=== PATIENT | male | born 1975 | race Caucasian/White ===

== ENCOUNTER → 2022-08-07 16:44 | Outpatient (CLI) | payer OTHER, MEDICAID, SELFPAY ==
[2022-08-07 18:19] LABS: Add Manual Diff / Slide Review NO; Basophils Absolute Auto 100 /uL (0-100); Basophils Percent Auto 0.7 % (0-2); Eosinophils Absolute Auto 100 /uL (0-450); Eosinophils Percent Auto 0.6 % (2-4); Hematocrit 42.6 % (41-53); Hemoglobin 14.2 g/dL (13.5-17.5); Lymphocytes Absolute Auto 3500 /uL (1100-4500); Lymphocytes Percent Auto 31.4 % (25-40); Mean Corpuscular HGB Conc 33.3 % (30-36); Mean Corpuscular Hemoglobin 29.9 PG (26-34); Mean Corpuscular Volume 89.9 fL (80-100); Monocytes Absolute Auto 800 /uL (0-900); Monocytes Percent Auto 6.7 % (3-14); Neutrophils Absolute Auto 6800 /uL (1500-7000); Neutrophils Percent Auto 60.6 % (50-75); Platelet Count 297 X10^3/uL (150-400); Red Blood Cell Count 4.74 X10^6/uL (4.5-5.9); Red Cell Distribution Width 14.4 % (11.6-14.8); White Blood Cell Count 11.3 X10^3/uL (4.5-11.0)
[2022-08-07 18:28] LABS: Alanine Aminotransferase 33 IU/L (<50); Albumin 3.7 g/dL (3.5-5.0); Albumin Globulin Ratio 1.4 (1.0-2.8); Alkaline Phosphatase 77 U/L (38-126); Aspartate Aminotransferase 26 IU/L (17-59); BUN Creatinine Ratio 15.1 (6-22); Bilirubin Total 0.3 mg/dL (0.2-1.3); Blood Urea Nitrogen 11 mg/dL (9-20); Calcium 8.5 mg/dL (8.4-10.2); Carbon Dioxide 27 mmol/L (22-32); Chloride 101 mmol/L (98-107); Cholesterol 178 mg/dL (140-199); Estimated Glomerular Filt Rate > 60 mL/min (>60); Globulin 2.6 g/dL (1.7-4.1); Glucose 109 mg/dL (70-100); HDL Cholesterol 38 mg/dL (40-60); HEMOLYSIS < 15 (0-50); LDL Cholesterol Calculated 114 mg/dL (<100); Potassium 3.8 mmol/L (3.4-5.1); Sodium 137 mmol/L (137-145); Total Protein 6.3 g/dL (6.3-8.2); Triglycerides 132 mg/dL (35-150)
== END ==
PROVIDERS: PCP Family Medicine; Referring Provider Family Medicine; Visit Provider Family Medicine
DX: I10 Essential (primary) hypertension (principal); J45.909 Unspecified asthma, uncomplicated
CPT/HCPCS: 36415; 80053; 80061; 83036; 85025

== ENCOUNTER → 2022-09-10 10:46 | Outpatient (CLI) | payer OTHER, MEDICAID, SELFPAY ==
[2022-09-10 12:49] LABS: Influenza A - CEPHEID Flu A NEGATIVE (NEGATIVE); Influenza B - CEPHEID Flu B NEGATIVE (NEGATIVE); Respiratory Syncytial Virus Negative (Negative)
[2022-09-10 13:18] LABS: COVID-19 CEPHEID 4-PLEX PCR Negative (Negative)
== END ==
PROVIDERS: PCP Family Medicine; Visit Provider Family Medicine
DX: R05.3 Chronic cough (principal); R09.81 Nasal congestion
CPT/HCPCS: 0241U

== ENCOUNTER → 2022-09-10 10:55 | Outpatient (CLI) | payer OTHER, MEDICAID, SELFPAY ==
--- NOTE | 2022-09-10 10:57 | DI.RAD.S_ITS ---
PROCEDURE: XR CHEST 2V INDICATIONS: chronic cough TECHNIQUE: 2 views of the chest were acquired. COMPARISON: None. FINDINGS: Surgical changes and devices: None. Lungs and pleura: Lungs are clear. No pleural effusions or pneumothorax. Mediastinum: Mediastinal contours are normal. Heart size is normal. Bones and chest wall: No suspicious bony abnormalities. Soft tissues appear unremarkable. IMPRESSION: No acute process. Dictated by: Michael Arreola M.D. on 09/10/2022 at 13:20 Transcribed by: SAMIR on 09/10/2022 at 13:21 Approved by: Michael Arreola M.D. on 09/10/2022 at 16:33
== END ==
PROVIDERS: PCP Family Medicine; Referring Provider Family Medicine; Visit Provider Family Medicine
DX: R05.3 Chronic cough (principal); F17.200 Nicotine dependence, unspecified, uncomplicated; R09.81 Nasal congestion
CPT/HCPCS: 0241U; 71046

== ENCOUNTER → 2023-06-03 14:39 | Outpatient (CLI) | payer OTHER, MEDICAID, SELFPAY ==
[2023-06-03 16:13] LABS: Add Manual Diff / Slide Review NO; Basophils Absolute Auto 100 /uL (0-100); Eosinophils Absolute Auto 100 /uL (0-450); Eosinophils Percent Auto 0.7 % (2-4); Hematocrit 42.5 % (41-53); Hemoglobin 14.3 g/dL (13.5-17.5); Lymphocytes Absolute Auto 2900 /uL (1100-4500); Lymphocytes Percent Auto 28.8 % (25-40); Mean Corpuscular HGB Conc 33.6 % (30-36); Mean Corpuscular Hemoglobin 30.2 PG (26-34); Monocytes Absolute Auto 600 /uL (0-900); Monocytes Percent Auto 6.2 % (3-14); Neutrophils Absolute Auto 6400 /uL (1500-7000); Neutrophils Percent Auto 63.3 % (50-75); Platelet Count 335 X10^3/uL (150-400); Red Blood Cell Count 4.72 X10^6/uL (4.5-5.9); Red Cell Distribution Width 14.8 % (11.6-14.8); White Blood Cell Count 10.2 X10^3/uL (4.5-11.0)
[2023-06-03 16:20] LABS: Hemoglobin A1C% w Est Avg Glu 6.1 % (4.0-6.0)
[2023-06-03 16:37] LABS: Alanine Aminotransferase 45 IU/L (<50); Albumin 3.6 g/dL (3.5-5.0); Albumin Globulin Ratio 1.4 (1.0-2.8); Alkaline Phosphatase 81 U/L (38-126); Aspartate Aminotransferase 34 IU/L (17-59); BUN Creatinine Ratio 24.1 (6-22); Bilirubin Total 0.2 mg/dL (0.2-1.3); Blood Urea Nitrogen 14 mg/dL (9-20); Carbon Dioxide 31 mmol/L (22-32); Chloride 101 mmol/L (98-107); Cholesterol 167 mg/dL (140-199); Estimated Glomerular Filt Rate > 60 mL/min (>60); Globulin 2.6 g/dL (1.7-4.1); Glucose 110 mg/dL (70-100); HDL Cholesterol 41 mg/dL (40-60); HEMOLYSIS 20 (0-50); LDL Cholesterol Calculated 101 mg/dL (<100); Potassium 4.5 mmol/L (3.4-5.1); Sodium 138 mmol/L (137-145); Total Protein 6.2 g/dL (6.3-8.2); Triglycerides 123 mg/dL (35-150)
== END ==
LOC: LAB 14:41 → RESP 14:50
PROVIDERS: PCP Family Medicine; Referring Provider Family Medicine; Visit Provider Family Medicine
DX: R06.02 Shortness of breath (principal); R55 Syncope and collapse; F17.200 Nicotine dependence, unspecified, uncomplicated
CPT/HCPCS: 36415; 80053; 80061; 83036; 84443; 85025; 93005; 93010

== ENCOUNTER → 2024-02-16 11:01 | Outpatient (CLI) | payer OTHER, SELFPAY ==
--- NOTE | 2024-02-16 11:02 | DI.RAD.S_ITS ---
PROCEDURE: XR CHEST 2V INDICATIONS: Cough, SOB TECHNIQUE: 2 views of the chest were acquired. COMPARISON: [facility], CR, XR CHEST 2V, 09/10/2022, 10:55. FINDINGS: Surgical changes and devices: None. Lungs and pleura: Mild appearance of increased interstitial opacities. Mediastinum: Mediastinal contours are normal. Heart size is normal. Bones and chest wall: No suspicious bony abnormalities. Soft tissues appear unremarkable. IMPRESSION: Mild increased interstitial opacities suspicious for pneumonia. Dictated by: Heidi Wheatley M.D. on 02/16/2024 at 11:39 Approved by: Heidi Wheatley M.D. on 02/16/2024 at 11:40
== END ==
LOC: RAD 11:01
PROVIDERS: PCP Family Medicine; Referring Provider Physician Assistant Surgical; Visit Provider Physician Assistant Surgical
DX: R06.02 Shortness of breath (principal)
CPT/HCPCS: 71046

== ENCOUNTER → 2024-04-15 08:14 | Outpatient (CLI) | payer OTHER, SELFPAY | PROVIDERS: PCP Family Medicine; Referring Provider Family Medicine; Visit Provider Family Medicine | DX: J43.8 Other emphysema (principal); F17.210 Nicotine dependence, cigarettes, uncomplicated; R94.2 Abnormal results of pulmonary function studies | CPT/HCPCS: 94060; 94729 ==

== ENCOUNTER → 2024-05-05 08:11 | Outpatient (CLI) | payer OTHER, SELFPAY ==
--- NOTE | 2024-05-05 08:11 | DI.ECHO.S_ITS ---
[place] [facility]---------+ [facility] : : [id number] : : [place] : : [id number] : : Phone: [phone] Echocardiogram Report + + :Name: ISAIAH NIELSON Study Date: 05/05/2024 Height: 72 in : :Hospital ReadingLocation: Weight: 140 lb : : Gender: Male BSA: 1.8 m2 : :: 1975 Age: 49 yrs BP: 118/89 mmHg: :Reason For Study: F/U ON PULM NODULES, COPD : :Ordering Physician: SIRISHA STOKESPerformed By: Yudelka Paz : :Referring: SIRISHA STOKES : + + Interpretation Summary Sinus tachycardia. Normal LV size, wall thickness, wall motion and LV systolic function. EF is 55-60%. Mildly dilated RV with normal RV systolic function. Unable to estimated PA systolic pressure due to lack of significant TR jet. No significant valvular abnormalities. No prior study available for comparison. Procedure: A two-dimensional transthoracic echocardiogram with color flow and Doppler was performed. The study quality was technically adequate. There is no prior echocardiogram noted for this patient. The patient was in a tachycardic rhythm during the exam. The heart rate ranged between 104-115 bpm during the study. Left Ventricle: The left ventricle is normal in size and wall thickness. The ejection fraction is estimated to be 55-60%. Right Ventricle: The right ventricle is mildly dilated. The right ventricular systolic function is normal. Atria: The left atrial size is normal. Right atrial size is normal. There is no Doppler evidence for an interatrial shunt. Mitral Valve: There is mild mitral annular calcification. There is a flat closure plane of the the mitral valve leaflets. There is no mitral regurgitation noted. Aortic Valve: The aortic valve is grossly normal. The aortic valve opens well. There is no aortic valve stenosis. No aortic regurgitation is present. Tricuspid Valve: The tricuspid valve is normal in structure and function. There is trace tricuspid regurgitation. Pulmonary artery pressures cannot be estimated because of the lack of a measurable TR jet velocity. Pulmonic Valve: The pulmonic valve leaflets are thin and pliable; valve motion is normal. There is no pulmonic valvular regurgitation. Great Vessels: The aortic root is normal size. The ascending aorta could not be visualized. The IVC is of normal diameter and collapses greater than 50% with a sniff. This suggests a low right atrial pressure of 3 mm Hg. Pericardium/ Pleura There is no pericardial effusion. There is no pleural effusion. MMode/2D Measurements & Calculations LVIDd: 4.4 cm LVOT diam: 2.2 cm LVIDs: 3.0 cm Ao root diam: 3.8 cm FS: 31.3 % Ao Arch Diam (Prox Trans): 2.4 cm IVSd: 0.84 cm LVPWd: 0.96 cm LV dumont. diameter/BSA (cm/m^2): 2.4 LV sys. diameter/BSA (cm/m^2): 1.6 LA A2 area: 14.5 cm2 RA long axis: 3.6 cm LA A4 area: 12.1 cm2 RA area: 9.8 cm2 LA length (vol): 4.6 cm RA vol: 23.0 ml LA vol: 32.5 ml RA : 12.5 ml/m2 LA vol index: 17.8 ml/m2 IVC diam: 1.7 cm RVD1 (basal): 4.3 cm TAPSE: 2.1 cm Doppler Measurements & Calculations Ao V2 max: 131.6 cm/sec LVOT Max Ahmet: 111.9 cm/sec Ao V2 mean: 90.8 cm/sec LV V1 max P.0 mmHg Ao max P.9 mmHg LV V1 VTI: 19.6 cm Ao mean P.6 mmHg RADHA(I,D): 3.4 cm2 Ao V2 VTI: 22.3 cm RADHA(V,D): 3.2 cm2 sev ratio: 0.88 RADHA indexed to BSA (cm^2/m^2): 1.8 MV E max ahmet: 78.2 cm/sec PA V2 max: 95.8 cm/sec MV A max ahmet: 65.9 cm/sec PA V2 mean: 61.9 cm/sec MV E/A: 1.2 PA mean P.7 mmHg Med Peak E' Ahmet: 9.2 cm/sec PA pr(Accel): 46.9 mmHg E/E' med: 8.5 Lat Peak E' Ahmet: 13.2 cm/sec E/E' lat: 5.9 E/e' average: 7.2 MV dec time: 0.16 sec SV(LVOT): 74.7 ml Electronically signed by: Tiffany Taylor M.D. on Reading Physician:05/07/2024 01:09 PM
== END ==
PROVIDERS: PCP Family Medicine; Referring Provider Family Medicine; Visit Provider Family Medicine
DX: I34.81 Nonrheumatic mitral (valve) annulus calcification (principal); J43.9 Emphysema, unspecified; M79.89 Other specified soft tissue disorders; I10 Essential (primary) hypertension; R09.02 Hypoxemia
CPT/HCPCS: 93306

== ENCOUNTER → 2024-06-18 08:59 | Outpatient (CLI) | payer SELFPAY ==
[2024-06-18 10:42] LABS: Add Manual Diff / Slide Review NO; Basophils Absolute Auto 0 /uL (0-100); Basophils Percent Auto 0.3 % (0-2); Eosinophils Absolute Auto 0 /uL (0-450); Eosinophils Percent Auto 0.1 % (2-4); Hematocrit 43.8 % (41-53); Hemoglobin 13.8 g/dL (13.5-17.5); Lymphocytes Absolute Auto 800 /uL (1100-4500); Mean Corpuscular HGB Conc 31.4 % (30-36); Mean Corpuscular Hemoglobin 28.9 PG (26-34); Mean Corpuscular Volume 91.8 fL (80-100); Monocytes Absolute Auto 100 /uL (0-900); Monocytes Percent Auto 0.9 % (3-14); Neutrophils Absolute Auto 12200 /uL (1500-7000); Neutrophils Percent Auto 92.7 % (50-75); Platelet Count 327 X10^3/uL (150-400); Red Blood Cell Count 4.77 X10^6/uL (4.5-5.9); Red Cell Distribution Width 19.2 % (11.6-14.8); White Blood Cell Count 13.1 X10^3/uL (4.5-11.0)
[2024-06-18 11:26] LABS: Alanine Aminotransferase 27 IU/L (<50); Albumin 3.8 g/dL (3.5-5.0); Albumin Globulin Ratio 1.9 (1.0-2.8); Alkaline Phosphatase 70 U/L (38-126); Aspartate Aminotransferase 27 IU/L (17-59); BUN Creatinine Ratio 29.5 (6-22); Bilirubin Total 0.3 mg/dL (0.2-1.3); Blood Urea Nitrogen 13 mg/dL (9-20); Calcium 8.9 mg/dL (8.4-10.2); Chloride 92 mmol/L (98-107); Estimated Glomerular Filt Rate > 60 mL/min (>60); Glucose 139 mg/dL (70-100); HEMOLYSIS < 15 (0-50); Sodium 135 mmol/L (137-145); Total Protein 5.8 g/dL (6.3-8.2)
[2024-06-18 11:27] LABS: Hemoglobin A1C% w Est Avg Glu 6.3 % (4.0-6.0)
[2024-06-18 11:38] LABS: Carbon Dioxide 38 mmol/L (22-32)
[2024-06-18 12:13] LABS: HIV 1 & 2 Ab/Ag 4th Gen Combo NEGATIVE (NEGATIVE); Hep C Virus Ab w/Reflex Quant NEGATIVE s/c (NEGATIVE)
[2024-06-19 05:15] LABS: Alpha 1 Anti Trypsin 163 mg/dL (101-187)
[2024-06-21 04:36] LABS: Immunoglobulin E 1188 IU/mL (6-495)
[2024-06-21 10:07] LABS: Aspergillus fumigatus IgE 0.71 kU/L (Class II)
== END ==
PROVIDERS: PCP Family Medicine; Referring Provider Internal Medicine; Visit Provider Internal Medicine
DX: J45.50 Severe persistent asthma, uncomplicated (principal); Z79.52 Long term (current) use of systemic steroids; J43.9 Emphysema, unspecified; Z11.59 Encounter for screening for other viral diseases; Z11.4 Encounter for screening for human immunodeficiency virus [HIV]; I10 Essential (primary) hypertension; J45.909 Unspecified asthma, uncomplicated; M10.9 Gout, unspecified; R73.01 Impaired fasting glucose; J43.2 Centrilobular emphysema
CPT/HCPCS: 36415; 80053; 82103; 82785; 83036; 85025; 86003; 86803; 87389